=== PATIENT | female | born 1985 | race Caucasian/White ===

== ENCOUNTER 2017-09-22 19:29 | Emergency (ER) | payer OTHER ==
[2017-09-22] MEDS: SOD CHLORIDE 0.9% 1,000 ML IV (20:50)
[2017-09-22] MEDS: ASPIRIN 81 MG TAB PO (20:50)
[2017-09-22] MEDS: METOCLOPRAMIDE 10 MG INJ IV (20:50)
[2017-09-22] MEDS: morphine 2 MG INJ IV (20:50)
[2017-09-22 20:55] LABS: ADD MAN DIFF? NO
[2017-09-22 20:59] LABS: WHITE BLOOD COUNT 9.1 10^3/ul (4.8-10.8)
[2017-09-22 20:59] LABS: BASOPHILS % 0.3 % (0.0-2.0); EOSINOPHILS # 0.1 10^3/ul (0.0-0.5); EOSINOPHILS % 0.9 % (0.0-7.0); HEMATOCRIT 29.1 % (37.0-47.0); HEMOGLOBIN 9.9 g/dl (12.0-16.0); LYMPHOCYTES # 2.4 10^3/ul (0.8-2.9); LYMPHOCYTES % 26.2 % (15.0-51.0); MEAN CORPUSCULAR HEMOGLOBIN 32.2 pg (29.0-33.0); MEAN CORPUSCULAR VOLUME 94.8 fl (82.0-101.0); MEAN PLATELET VOLUME 12.9 fl (7.4-10.4); MONOCYTE # 0.6 10^3/ul (0.3-0.9); MONOCYTES % 6.9 % (0.0-11.0); NEUTROPHIL # 5.9 10^3/ul (1.6-7.5); NEUTROPHILS % 65.3 % (39.0-77.0); PLATELET COUNT 140 10^3/UL (140-415); RED BLOOD COUNT 3.07 10^6/ul (4.20-5.40); RED CELL DISTRIBUTION WIDTH 13.4 % (11.5-14.5)
[2017-09-22 21:21] LABS: ANION GAP 12 (8-16); BLOOD UREA NITROGEN 11 mg/dl (7-20); CALCIUM 8.5 mg/dl (8.4-10.2); CARBON DIOXIDE 24 mmol/L (21-31); CHLORIDE 107 mmol/L (97-110); CREATININE 0.46 mg/dl (0.44-1.00); GLUCOSE 84 mg/dl (70-220); POTASSIUM 4.1 mmol/L (3.5-5.1); SODIUM 139 mmol/L (135-144)
== END 2017-09-22 22:05 | disposition home or self-care (01) ==
LOC: FTE 19:29
DX: O99.89 Other specified diseases and conditions complicating pregnancy, childbirth and the puerperium (principal); R51 Headache; Z3A.23 23 weeks gestation of pregnancy; Z79.82 Long term (current) use of aspirin
CPT/HCPCS: 36415; 80048; 81025; 85025; 96374; 96375; 99284-25

== ENCOUNTER 2017-11-03 09:50 | Inpatient (IN) | payer OTHER ==
[2017-11-03] MEDS ORDERED: ACETAMINOPHEN 325 MG TAB PO (10:30)
[2017-11-03 10:44] LABS: ADD MAN DIFF? NO
[2017-11-03 10:48] LABS: ADD UMIC YES; UR ASCORBIC ACID NEGATIVE (NEGATIVE); UR BILIRUBIN (Dip) NEGATIVE (NEGATIVE); UR BLOOD (Dip) NEGATIVE (NEGATIVE); UR CLARITY CLEAR (CLEAR); UR COLOR STRAW (YELLOW); UR GLUCOSE (Dip) NEGATIVE (NEGATIVE); UR KETONES (Dip) NEGATIVE (NEGATIVE); UR LEUKOCYTE ESTERASE (Dip) TRACE Leu/ul (NEGATIVE); UR NITRITE (Dip) NEGATIVE (NEGATIVE); UR RBC 0 /HPF (0-5); UR SPECIFIC GRAVITY (Dip) 1.006 (1.003-1.030); UR TOTAL PROTEIN (Dip) NEGATIVE (NEGATIVE); UR UROBILINOGEN (Dip) NEGATIVE (NEGATIVE); UR WBC 2 /HPF (0-5)
[2017-11-03 10:49] LABS: ABNORMAL IP MESSAGE 1; BASOPHILS % 0.4 % (0.0-2.0); EOSINOPHILS % 0.4 % (0.0-7.0); HEMATOCRIT 31.9 % (37.0-47.0); HEMOGLOBIN 10.7 g/dl (12.0-16.0); LYMPHOCYTES # 1.7 10^3/ul (0.8-2.9); LYMPHOCYTES % 18.1 % (15.0-51.0); MEAN CORPUSCULAR HEMOGLOBIN 32.6 pg (29.0-33.0); MEAN CORPUSCULAR HGB CONC 33.5 g/dl (32.0-37.0); MEAN CORPUSCULAR VOLUME 97.3 fl (82.0-101.0); MEAN PLATELET VOLUME 13.9 fl (7.4-10.4); MONOCYTE # 0.5 10^3/ul (0.3-0.9); MONOCYTES % 4.8 % (0.0-11.0); NEUTROPHIL # 7.2 10^3/ul (1.6-7.5); NEUTROPHILS % 75.9 % (39.0-77.0); PLATELET COUNT 123 10^3/UL (140-415); RED BLOOD COUNT 3.28 10^6/ul (4.20-5.40); RED CELL DISTRIBUTION WIDTH 13.6 % (11.5-14.5)
[2017-11-03 10:49] LABS: WHITE BLOOD COUNT 9.4 10^3/ul (4.8-10.8)
[2017-11-03 11:05] LABS: INR 0.86; PROTIME 11.8 Sec (11.9-14.9); PT RATIO 0.9
[2017-11-03 11:06] LABS: PARTIAL THROMBOPLASTIN TIME 26.7 Sec (25.0-35.0)
[2017-11-03] MEDS: LACTATED RINGER'S 1,000 ML IV ×2 (11:15→16:51)
[2017-11-03] MEDS: BETAMET NA PHOS/AC(6 MG/ML) 5ML INJ IM (11:20)
[2017-11-03 11:32] LABS: ALBUMIN/GLOBULIN RATIO 1.06; ANION GAP 11 (8-16); BILIRUBIN,TOTAL 0.1 mg/dl (0.2-1.3)
[2017-11-03 11:36] LABS: ALANINE AMINOTRANSFERASE 17 IU/L (13-69); ALBUMIN 3.4 g/dl (3.3-4.9); ALKALINE PHOSPHATASE 145 IU/L (42-121); ASPARTATE AMINO TRANSFERASE 20 IU/L (15-46); BILIRUBIN,INDIRECT 0.1 mg/dl (0-1.1); BLOOD UREA NITROGEN 12 mg/dl (7-20); CALCIUM 8.5 mg/dl (8.4-10.2); CARBON DIOXIDE 24 mmol/L (21-31); CHLORIDE 107 mmol/L (97-110); CREATININE 0.54 mg/dl (0.44-1.00); GLUCOSE 108 mg/dl (70-220); POTASSIUM 4.1 mmol/L (3.5-5.1); SODIUM 138 mmol/L (135-144); TOTAL PROTEIN 6.6 g/dl (6.1-8.1)
[2017-11-03] MEDS ORDERED: ONDANSETRON 4 MG TAB PO (21:30)
[2017-11-03] MEDS: ASPIRIN (EC) 81 MG TAB PO (23:23)
[2017-11-04] MEDS: LACTATED RINGER'S 1,000 ML IV ×4 (00:02→23:12)
[2017-11-04 11:13] LABS: COLLECTION PERIOD 24 hrs
[2017-11-04] MEDS: BETAMET NA PHOS/AC(6 MG/ML) 5ML INJ IM (11:35)
[2017-11-04 12:58] LABS: COLLECTION PERIOD 24 hrs; CREATININE CLEARANCE 179.4 mls/min (84.0-162.0); CREATININE,URINE RANDOM 49.81 mg/dl (20-320); SCRET 0.54 mg/dl (0.44-1.00); VOLUME 2800 ml/24hrs; VOLUME 2800 mls
[2017-11-04] MEDS: PRENATAL VITAMIN PO (21:25)
[2017-11-04] MEDS: ASPIRIN (EC) 81 MG TAB PO (23:13)
[2017-11-05] MEDS: LACTATED RINGER'S 1,000 ML IV ×3 (06:34→20:31)
[2017-11-05 15:02] LABS: ADD MAN DIFF? NO
[2017-11-05 15:06] LABS: ABNORMAL IP MESSAGE 1; BASOPHILS % 0.1 % (0.0-2.0); EOSINOPHILS % 0.1 % (0.0-7.0); HEMATOCRIT 29.1 % (37.0-47.0); HEMOGLOBIN 9.4 g/dl (12.0-16.0); LYMPHOCYTES # 2.4 10^3/ul (0.8-2.9); LYMPHOCYTES % 17.7 % (15.0-51.0); MEAN CORPUSCULAR HEMOGLOBIN 31.8 pg (29.0-33.0); MEAN CORPUSCULAR HGB CONC 32.3 g/dl (32.0-37.0); MEAN CORPUSCULAR VOLUME 98.3 fl (82.0-101.0); MEAN PLATELET VOLUME 13.6 fl (7.4-10.4); MONOCYTES % 7.4 % (0.0-11.0); NEUTROPHIL # 10.1 10^3/ul (1.6-7.5); NEUTROPHILS % 73.6 % (39.0-77.0); PLATELET COUNT 118 10^3/UL (140-415); RED BLOOD COUNT 2.96 10^6/ul (4.20-5.40); RED CELL DISTRIBUTION WIDTH 14.2 % (11.5-14.5)
[2017-11-05 15:06] LABS: WHITE BLOOD COUNT 13.7 10^3/ul (4.8-10.8)
[2017-11-05 15:08] LABS: POSITIVE DIFF @See below
[2017-11-05] MEDS: ASPIRIN (EC) 81 MG TAB PO (23:47)
[2017-11-05] MEDS: PRENATAL VITAMIN PO (23:49)
[2017-11-06 00:37] LABS: B2 GLYCOPROTEIN I AB (IGA) <9 SAU (< OR = 20); B2 GLYCOPROTEIN I AB (IGG) <9 SGU (< OR = 20); B2 GLYCOPROTEIN I AB (IGM) <9 SMU (< OR = 20)
[2017-11-06] MEDS: LACTATED RINGER'S 1,000 ML IV ×2 (04:48→17:21)
[2017-11-06 05:40] LABS: ABNORMAL IP MESSAGE 1; ADD MAN DIFF? NO; BASOPHILS % 0.3 % (0.0-2.0); EOSINOPHILS # 0.1 10^3/ul (0.0-0.5); EOSINOPHILS % 0.6 % (0.0-7.0); HEMOGLOBIN 9.1 g/dl (12.0-16.0); LYMPHOCYTES # 2.9 10^3/ul (0.8-2.9); MEAN CORPUSCULAR HEMOGLOBIN 32.3 pg (29.0-33.0); MEAN CORPUSCULAR HGB CONC 32.5 g/dl (32.0-37.0); MEAN CORPUSCULAR VOLUME 99.3 fl (82.0-101.0); MEAN PLATELET VOLUME 14.3 fl (7.4-10.4); MONOCYTE # 0.8 10^3/ul (0.3-0.9); MONOCYTES % 7.8 % (0.0-11.0); NEUTROPHIL # 6.7 10^3/ul (1.6-7.5); NEUTROPHILS % 63.4 % (39.0-77.0); NUCLEATED RED BLOOD CELLS% 0.2 /100WBC (0.0-0.0); PLATELET COUNT 105 10^3/UL (140-415); RED BLOOD COUNT 2.82 10^6/ul (4.20-5.40)
[2017-11-06 05:40] LABS: WHITE BLOOD COUNT 10.6 10^3/ul (4.8-10.8)
[2017-11-06 05:49] LABS: POSITIVE DIFF @See below
[2017-11-06 06:11] LABS: ALANINE AMINOTRANSFERASE 28 IU/L (13-69); ALBUMIN 2.8 g/dl (3.3-4.9); ALBUMIN/GLOBULIN RATIO 0.93; ALKALINE PHOSPHATASE 111 IU/L (42-121); ANION GAP 11 (8-16); ASPARTATE AMINO TRANSFERASE 24 IU/L (15-46); BILIRUBIN,INDIRECT 0.2 mg/dl (0-1.1); BILIRUBIN,TOTAL 0.2 mg/dl (0.2-1.3); BLOOD UREA NITROGEN 9 mg/dl (7-20); CALCIUM 8.2 mg/dl (8.4-10.2); CARBON DIOXIDE 24 mmol/L (21-31); CHLORIDE 109 mmol/L (97-110); CREATININE 0.49 mg/dl (0.44-1.00); GLUCOSE 107 mg/dl (70-220); POTASSIUM 3.7 mmol/L (3.5-5.1); SODIUM 140 mmol/L (135-144); TOTAL PROTEIN 5.8 g/dl (6.1-8.1); URIC ACID 3.4 mg/dl (3.1-7.9)
[2017-11-06 06:12] LABS: INR 0.85; PROTIME 11.7 Sec (11.9-14.9); PT RATIO 0.9
[2017-11-06 06:13] LABS: PARTIAL THROMBOPLASTIN TIME 25.4 Sec (25.0-35.0)
[2017-11-06 06:47] LABS: ADD UMIC YES; UR ASCORBIC ACID NEGATIVE (NEGATIVE); UR BACTERIA FEW /HPF (NONE SEEN); UR BILIRUBIN (Dip) NEGATIVE (NEGATIVE); UR BLOOD (Dip) NEGATIVE (NEGATIVE); UR CLARITY CLEAR (CLEAR); UR COLOR STRAW (YELLOW); UR GLUCOSE (Dip) NEGATIVE (NEGATIVE); UR KETONES (Dip) NEGATIVE (NEGATIVE); UR LEUKOCYTE ESTERASE (Dip) 2+ Leu/ul (NEGATIVE); UR NITRITE (Dip) NEGATIVE (NEGATIVE); UR RBC 1 /HPF (0-5); UR SPECIFIC GRAVITY (Dip) 1.009 (1.003-1.030); UR TOTAL PROTEIN (Dip) NEGATIVE (NEGATIVE); UR UROBILINOGEN (Dip) NEGATIVE (NEGATIVE); UR WBC 3 /HPF (0-5)
[2017-11-06] MEDS: PRENATAL VITAMIN PO (21:48)
[2017-11-06] MEDS: ASPIRIN (EC) 81 MG TAB PO (21:49)
[2017-11-07] MEDS: LACTATED RINGER'S 1,000 ML IV ×3 (02:34→21:55)
[2017-11-07] MEDS: DOCUSATE SODIUM 100 MG CAP PO ×2 (09:36→21:00)
[2017-11-07] MEDS ORDERED: SENNA TAB PO (16:00)
[2017-11-07] MEDS ORDERED: PRENATAL VITAMIN PO (16:00)
[2017-11-07] MEDS ORDERED: MAGNESIUM HYDROXIDE 30ML CUP PO (16:00)
[2017-11-07] MEDS: PRENATAL VITAMIN PO (21:29)
[2017-11-07] MEDS: ASPIRIN (EC) 81 MG TAB PO (22:35)
[2017-11-08 06:38] LABS: ADD MAN DIFF? NO
[2017-11-08 06:48] LABS: ABNORMAL IP MESSAGE 1; BASOPHILS % 0.2 % (0.0-2.0); EOSINOPHILS # 0.1 10^3/ul (0.0-0.5); EOSINOPHILS % 0.7 % (0.0-7.0); HEMATOCRIT 31.8 % (37.0-47.0); HEMOGLOBIN 10.7 g/dl (12.0-16.0); LYMPHOCYTES # 2.8 10^3/ul (0.8-2.9); LYMPHOCYTES % 27.3 % (15.0-51.0); MEAN CORPUSCULAR HEMOGLOBIN 32.6 pg (29.0-33.0); MEAN CORPUSCULAR HGB CONC 33.6 g/dl (32.0-37.0); MEAN PLATELET VOLUME 13.4 fl (7.4-10.4); MONOCYTE # 0.8 10^3/ul (0.3-0.9); NEUTROPHIL # 6.4 10^3/ul (1.6-7.5); PLATELET COUNT 118 10^3/UL (140-415); RED BLOOD COUNT 3.28 10^6/ul (4.20-5.40); RED CELL DISTRIBUTION WIDTH 13.6 % (11.5-14.5)
[2017-11-08 06:48] LABS: WHITE BLOOD COUNT 10.1 10^3/ul (4.8-10.8)
[2017-11-08 06:51] LABS: POSITIVE DIFF @See below
[2017-11-08] MEDS: DOCUSATE SODIUM 100 MG CAP PO ×2 (09:00→21:00)
[2017-11-08] MEDS: FERROUS GLUCONATE (EC) 325 MG TAB PO ×2 (10:36→10:38)
[2017-11-08] MEDS: LACTATED RINGER'S 1,000 ML IV ×4 (14:00→22:04)
[2017-11-08] MEDS: PRENATAL VITAMIN PO (21:54)
[2017-11-08] MEDS: ASPIRIN (EC) 81 MG TAB PO (22:20)
[2017-11-09 00:16] LABS: CARDIOLIPIN AB - IGA <11 APL; CARDIOLIPIN AB - IGG <14 GPL; CARDIOLIPIN AB - IGM <12 MPL
[2017-11-09] MEDS: LACTATED RINGER'S 1,000 ML IV ×3 (05:50→23:46)
[2017-11-09] MEDS: DOCUSATE SODIUM 100 MG CAP PO ×2 (16:18→21:53)
[2017-11-09] MEDS: FERROUS GLUCONATE (EC) 325 MG TAB PO ×2 (19:59→23:10)
[2017-11-09] MEDS: PRENATAL VITAMIN PO (21:52)
[2017-11-09] MEDS: ASPIRIN (EC) 81 MG TAB PO (23:11)
[2017-11-10] MEDS: DIPHENHYDRAMINE 50 MG CAP PO (01:04)
[2017-11-10] MEDS: LACTATED RINGER'S 1,000 ML IV ×3 (07:17→22:43)
[2017-11-10] MEDS: DOCUSATE SODIUM 100 MG CAP PO ×2 (08:55→21:00)
[2017-11-10] MEDS: FERROUS GLUCONATE (EC) 325 MG TAB PO (22:22)
[2017-11-10] MEDS: PRENATAL VITAMIN PO (22:22)
[2017-11-10] MEDS: ASPIRIN (EC) 81 MG TAB PO (22:22)
[2017-11-11] MEDS: LACTATED RINGER'S 1,000 ML IV ×2 (06:18→20:46)
[2017-11-11 08:03] LABS: ADD MAN DIFF? NO
[2017-11-11 08:10] LABS: WHITE BLOOD COUNT 9.4 10^3/ul (4.8-10.8)
[2017-11-11 08:10] LABS: ABNORMAL IP MESSAGE 1; BASOPHILS % 0.3 % (0.0-2.0); EOSINOPHILS # 0.1 10^3/ul (0.0-0.5); EOSINOPHILS % 1.3 % (0.0-7.0); HEMATOCRIT 30.3 % (37.0-47.0); HEMOGLOBIN 9.9 g/dl (12.0-16.0); LYMPHOCYTES # 2.8 10^3/ul (0.8-2.9); LYMPHOCYTES % 29.6 % (15.0-51.0); MEAN CORPUSCULAR HEMOGLOBIN 32.4 pg (29.0-33.0); MEAN CORPUSCULAR HGB CONC 32.7 g/dl (32.0-37.0); MEAN PLATELET VOLUME 14.1 fl (7.4-10.4); MONOCYTE # 0.8 10^3/ul (0.3-0.9); MONOCYTES % 8.1 % (0.0-11.0); NEUTROPHIL # 5.6 10^3/ul (1.6-7.5); NEUTROPHILS % 60.2 % (39.0-77.0); PLATELET COUNT 120 10^3/UL (140-415); RED BLOOD COUNT 3.06 10^6/ul (4.20-5.40); RED CELL DISTRIBUTION WIDTH 13.9 % (11.5-14.5)
[2017-11-11 08:15] LABS: POSITIVE DIFF @See below
[2017-11-11] MEDS: DOCUSATE SODIUM 100 MG CAP PO ×2 (08:56→22:04)
[2017-11-11] MEDS ORDERED: GLUCOSE GEL 15 GRAM TUBE BUCCAL (12:30)
[2017-11-11] MEDS ORDERED: GLUCOSE GEL 15 GRAM TUBE PO ×2 (12:30)
[2017-11-11] MEDS ORDERED: GLUCAGON 1 MG INJ IM (12:30)
[2017-11-11] MEDS ORDERED: DEXTROSE 50% 50 ML SYRINGE IV ×2 (12:30)
[2017-11-11] MEDS ORDERED: INSULIN ASPART [NOVOLOG] 3 ML PEN SC (17:35)
[2017-11-11] MEDS ORDERED: NPH, HUMAN INSULIN ISOPHANE 3ML VIAL SC (20:00)
[2017-11-11] MEDS: PRENATAL VITAMIN PO (22:04)
[2017-11-11] MEDS: ASPIRIN (EC) 81 MG TAB PO (22:04)
[2017-11-11] MEDS: FERROUS GLUCONATE (EC) 325 MG TAB PO (22:04)
[2017-11-12] MEDS: LACTATED RINGER'S 1,000 ML IV ×4 (02:03→22:03)
[2017-11-12] MEDS ORDERED: INSULIN ASPART [NOVOLOG] 3 ML PEN SC (07:35)
[2017-11-12] MEDS ORDERED: NPH, HUMAN INSULIN ISOPHANE 3ML VIAL SC (08:00)
[2017-11-12] MEDS: DOCUSATE SODIUM 100 MG CAP PO ×2 (09:10→22:03)
[2017-11-12] MEDS: ASPIRIN (EC) 81 MG TAB PO (22:03)
[2017-11-12] MEDS: FERROUS GLUCONATE (EC) 325 MG TAB PO (22:03)
[2017-11-12] MEDS: PRENATAL VITAMIN PO (22:03)
[2017-11-13] MEDS: DIPHENHYDRAMINE 50 MG CAP PO (02:35)
[2017-11-13] MEDS: LACTATED RINGER'S 1,000 ML IV ×3 (05:17→20:57)
[2017-11-13] MEDS: DOCUSATE SODIUM 100 MG CAP PO ×3 (12:54→21:33)
[2017-11-13] MEDS: FERROUS GLUCONATE (EC) 325 MG TAB PO (21:33)
[2017-11-13] MEDS: PRENATAL VITAMIN PO (21:33)
[2017-11-13] MEDS: ASPIRIN (EC) 81 MG TAB PO (21:33)
[2017-11-14] MEDS: LACTATED RINGER'S 1,000 ML IV ×3 (05:02→21:56)
[2017-11-14] MEDS: PRENATAL VITAMIN PO (21:25)
[2017-11-14] MEDS: FERROUS GLUCONATE (EC) 325 MG TAB PO (21:25)
[2017-11-14] MEDS: DOCUSATE SODIUM 100 MG CAP PO (21:25)
[2017-11-14] MEDS: ASPIRIN (EC) 81 MG TAB PO (21:25)
[2017-11-15] MEDS: LACTATED RINGER'S 1,000 ML IV ×3 (05:58→19:06)
[2017-11-15] MEDS: DOCUSATE SODIUM 100 MG CAP PO (09:00)
[2017-11-15] MEDS: BETAMET NA PHOS/AC(6 MG/ML) 5ML INJ IM (12:21)
[2017-11-15] MEDS ORDERED: OXYTOCIN 30 UNITS/LR 500 ML IV ×2 (18:00→22:35)
[2017-11-15] MEDS ORDERED: METHYLERGONOVINE 0.2 MG INJ IM (18:00)
[2017-11-15] MEDS ORDERED: CARBOPROST 250 MCG INJ IM (18:00)
[2017-11-15] MEDS ORDERED: MISOPROSTOL 200 MCG TAB PR (18:00)
[2017-11-15 18:05] LABS: ADD MAN DIFF? NO
[2017-11-15 18:07] LABS: ABNORMAL IP MESSAGE 1; BASOPHILS % 0.2 % (0.0-2.0); HEMATOCRIT 33.6 % (37.0-47.0); HEMOGLOBIN 11.3 g/dl (12.0-16.0); LYMPHOCYTES # 0.9 10^3/ul (0.8-2.9); MEAN CORPUSCULAR HGB CONC 33.6 g/dl (32.0-37.0); MEAN CORPUSCULAR VOLUME 98.2 fl (82.0-101.0); MEAN PLATELET VOLUME 13.8 fl (7.4-10.4); MONOCYTE # 0.1 10^3/ul (0.3-0.9); MONOCYTES % 0.9 % (0.0-11.0); NEUTROPHILS % 91.4 % (39.0-77.0); PLATELET COUNT 133 10^3/UL (140-415); RED BLOOD COUNT 3.42 10^6/ul (4.20-5.40)
[2017-11-15 18:07] LABS: WHITE BLOOD COUNT 13.1 10^3/ul (4.8-10.8)
[2017-11-15 18:26] LABS: INR 0.87; POSITIVE DIFF @See below; PROTIME 11.9 Sec (11.9-14.9); PT RATIO 0.9
[2017-11-15 18:27] LABS: PARTIAL THROMBOPLASTIN TIME 25.4 Sec (25.0-35.0)
[2017-11-15] MEDS ORDERED: METOCLOPRAMIDE 10 MG INJ (18:39)
[2017-11-15] MEDS ORDERED: ONDANSETRON 4 MG INJ (18:39)
[2017-11-15] MEDS ORDERED: FAMOTIDINE 20 MG INJ (18:40)
[2017-11-15] MEDS ORDERED: CITRIC ACID/SODIUM CITRATE 15 ML CUP (18:40)
[2017-11-15] MEDS: METOCLOPRAMIDE 10 MG INJ IV (18:52)
[2017-11-15] MEDS: CITRIC ACID/SODIUM CITRATE 15 ML CUP PO (18:52)
[2017-11-15] MEDS: ONDANSETRON 4 MG INJ IV (18:52)
[2017-11-15] MEDS: FAMOTIDINE 20 MG INJ IV (18:52)
[2017-11-15 18:56] LABS: HEPATITIS B SURFACE ANTIGEN NEGATIVE (NEGATIVE)
[2017-11-15] MEDS ORDERED: morphine SULFATE/PF (10 MG/10 ML) INJ (20:11)
[2017-11-15] MEDS ORDERED: EPINEPHrine 1 MG INJ (20:11)
[2017-11-15] MEDS ORDERED: TRIMETHOBENZAMIDE 100 MG/ML VIAL IM (20:30)
[2017-11-15] MEDS ORDERED: ZOLPIDEM 5 MG TAB PO (20:30)
[2017-11-15] MEDS ORDERED: FENTAnyl 50 MCG/ML VIAL IV (20:30)
[2017-11-15] MEDS ORDERED: NALOXONE (0.4 MG/ML) INJ IV (20:30)
[2017-11-15] MEDS ORDERED: HYDROmorphONE 0.5 MG/0.5 ML SYG IV ×2 (20:30)
[2017-11-15] MEDS ORDERED: HYDROmorphONE 1 MG/5 ML IV SYRINGE IV ×3 (20:30)
[2017-11-15] MEDS ORDERED: ONDANSETRON 4 MG INJ IV ×2 (20:30)
[2017-11-15] MEDS ORDERED: DIPHENHYDRAMINE 50 MG INJ IV (20:30)
[2017-11-15] MEDS: DIPHENHYDRAMINE 50 MG INJ IV (20:37)
[2017-11-15] MEDS: KETOROLAC 30 MG INJ IV (20:37)
[2017-11-15] MEDS: CEFAZOLIN 2 GM/50 ML (PMX) 50 ML IV (20:48)
[2017-11-15] MEDS: MEPERIDINE 25 MG INJ IV (21:17)
[2017-11-15] MEDS: OXYTOCIN 30 UNITS/LR 500 ML IV (21:21)
[2017-11-15] MEDS ORDERED: OXYTOCIN 10 UNIT INJ (22:35)
[2017-11-15] MEDS: FENTAnyl 50 MCG/ML VIAL IV (22:42)
[2017-11-16] MEDS ORDERED: MISOPROSTOL 200 MCG TAB PR
[2017-11-16] MEDS ORDERED: METHYLERGONOVINE 0.2 MG INJ IM
[2017-11-16] MEDS ORDERED: OXYTOCIN 30 UNITS/LR 500 ML IV
[2017-11-16] MEDS ORDERED: CARBOPROST 250 MCG INJ IM
[2017-11-16] MEDS ORDERED: NA PHOSPHATE/BIPHOS 133 ML ENEMA PR
[2017-11-16] MEDS: CLINDAMYCIN 300 MG CAP PO ×5 (00:30→23:35)
[2017-11-16] MEDS: CEFAZOLIN 2 GM/50 ML (PMX) 50 ML IV ×3 (00:31→16:14)
[2017-11-16] MEDS: OXYTOCIN 30 UNITS/LR 500 ML IV ×4 (01:56→21:15)
[2017-11-16] MEDS: LACTATED RINGER'S 1,000 ML IV ×2 (05:59→14:52)
[2017-11-16] MEDS: KETOROLAC 30 MG INJ IV ×2 (07:59→17:18)
[2017-11-16 11:00] LABS: ADD MAN DIFF? NO
[2017-11-16 11:01] LABS: ABNORMAL IP MESSAGE 1; BASOPHILS % 0.2 % (0.0-2.0); HEMATOCRIT 29.2 % (37.0-47.0); HEMOGLOBIN 9.6 g/dl (12.0-16.0); LYMPHOCYTES # 2.3 10^3/ul (0.8-2.9); MEAN CORPUSCULAR HEMOGLOBIN 32.3 pg (29.0-33.0); MEAN CORPUSCULAR HGB CONC 32.9 g/dl (32.0-37.0); MEAN CORPUSCULAR VOLUME 98.3 fl (82.0-101.0); MEAN PLATELET VOLUME 13.7 fl (7.4-10.4); MONOCYTES % 5.4 % (0.0-11.0); NEUTROPHIL # 14.3 10^3/ul (1.6-7.5); NEUTROPHILS % 80.8 % (39.0-77.0); PLATELET COUNT 110 10^3/UL (140-415); RED BLOOD COUNT 2.97 10^6/ul (4.20-5.40); RED CELL DISTRIBUTION WIDTH 14.4 % (11.5-14.5)
[2017-11-16 11:01] LABS: WHITE BLOOD COUNT 17.6 10^3/ul (4.8-10.8)
[2017-11-16 11:03] LABS: POSITIVE DIFF @See below
[2017-11-16] MEDS: BISACODYL 10 MG SUPP PR (11:30)
[2017-11-16] MEDS: SENNA/DOCUSATE NA (8.6MG/50MG) TAB PO ×2 (11:48→21:32)
[2017-11-16 17:49] LABS: RAPID PLASMA REAGIN NONREACTIVE (NR)
[2017-11-16] MEDS: IBUPROFEN 800 MG TAB PO (21:32)
[2017-11-16] MEDS: LANOLIN 7 GM TUBE TOP (23:28)
[2017-11-16] MEDS: OXYCODONE/ACETAMINOPHEN (5/325) TAB PO (23:34)
[2017-11-17] MEDS: CLINDAMYCIN 300 MG CAP PO ×4 (05:56→23:41)
[2017-11-17] MEDS: IBUPROFEN 800 MG TAB PO ×3 (05:56→22:27)
[2017-11-17] MEDS: OXYCODONE/ACETAMINOPHEN (5/325) TAB PO ×2 (07:06→11:36)
[2017-11-17] MEDS: SENNA/DOCUSATE NA (8.6MG/50MG) TAB PO ×2 (08:49→20:46)
[2017-11-17 08:51] LABS: ADD MAN DIFF? NO
[2017-11-17 09:00] LABS: WHITE BLOOD COUNT 15.6 10^3/ul (4.8-10.8)
[2017-11-17 09:00] LABS: ABNORMAL IP MESSAGE 1; BASOPHILS % 0.2 % (0.0-2.0); EOSINOPHILS % 0.3 % (0.0-7.0); HEMATOCRIT 30.4 % (37.0-47.0); HEMOGLOBIN 9.7 g/dl (12.0-16.0); LYMPHOCYTES # 4.1 10^3/ul (0.8-2.9); LYMPHOCYTES % 26.3 % (15.0-51.0); MEAN CORPUSCULAR HEMOGLOBIN 31.9 pg (29.0-33.0); MEAN CORPUSCULAR HGB CONC 31.9 g/dl (32.0-37.0); MEAN PLATELET VOLUME 13.6 fl (7.4-10.4); MONOCYTE # 0.9 10^3/ul (0.3-0.9); MONOCYTES % 5.6 % (0.0-11.0); NEUTROPHIL # 10.4 10^3/ul (1.6-7.5); NEUTROPHILS % 66.6 % (39.0-77.0); PLATELET COUNT 106 10^3/UL (140-415); RED BLOOD COUNT 3.04 10^6/ul (4.20-5.40); RED CELL DISTRIBUTION WIDTH 14.7 % (11.5-14.5)
[2017-11-17 09:07] LABS: POSITIVE DIFF @See below
[2017-11-17] MEDS: BISACODYL 10 MG SUPP PR (16:31)
[2017-11-17] MEDS: HYDROCODONE/APAP (5/325) TAB PO (20:45)
[2017-11-18] MEDS: IBUPROFEN 800 MG TAB PO ×2 (06:24→13:01)
[2017-11-18] MEDS: CLINDAMYCIN 300 MG CAP PO ×3 (06:24→17:31)
[2017-11-18 08:27] LABS: ADD MAN DIFF? NO
[2017-11-18 08:32] LABS: ABNORMAL IP MESSAGE 1; BASOPHILS % 0.3 % (0.0-2.0); EOSINOPHILS # 0.1 10^3/ul (0.0-0.5); HEMATOCRIT 26.3 % (37.0-47.0); HEMOGLOBIN 8.7 g/dl (12.0-16.0); LYMPHOCYTES % 28.8 % (15.0-51.0); MEAN CORPUSCULAR HEMOGLOBIN 33.3 pg (29.0-33.0); MEAN CORPUSCULAR HGB CONC 33.1 g/dl (32.0-37.0); MEAN CORPUSCULAR VOLUME 100.8 fl (82.0-101.0); MEAN PLATELET VOLUME 12.5 fl (7.4-10.4); MONOCYTE # 0.5 10^3/ul (0.3-0.9); NEUTROPHIL # 6.7 10^3/ul (1.6-7.5); NEUTROPHILS % 63.7 % (39.0-77.0); PLATELET COUNT 87 10^3/UL (140-415); RED BLOOD COUNT 2.61 10^6/ul (4.20-5.40); RED CELL DISTRIBUTION WIDTH 14.6 % (11.5-14.5)
[2017-11-18 08:32] LABS: WHITE BLOOD COUNT 10.5 10^3/ul (4.8-10.8)
[2017-11-18 08:34] LABS: POSITIVE DIFF @See below
[2017-11-18] MEDS: SENNA/DOCUSATE NA (8.6MG/50MG) TAB PO (09:00)
[2017-11-18] MEDS: MEASLES,MUMPS,RUBELLA VACCINE INJ SC* (10:06)
[2017-11-18] MEDS: DIPHTH/TET/ACEL PERTUSS (ADULT) 0.5 ML VIAL IM* (10:07)
== END 2017-11-18 19:06 | disposition home or self-care (01) | DRG 765 ==
LOC: L-D 09:50 → PP1 11-09 20:33 → L-D 11-15 17:15 → PP1 11-15 23:30
PROC: 10D00Z1 Extraction of Products of Conception, Low, Open Approach (ICD-10-PCS; principal; 2017-11-15 19:00)
DX: O60.14X0 Preterm labor third trimester with preterm delivery third trimester, not applicable or unspecified (principal); O41.03X0 Oligohydramnios, third trimester, not applicable or unspecified; O36.5930 Maternal care for other known or suspected poor fetal growth, third trimester, not applicable or unspecified; O41.93X0 Disorder of amniotic fluid and membranes, unspecified, third trimester, not applicable or unspecified; O76 Abnormality in fetal heart rate and rhythm complicating labor and delivery; Z3A.29 29 weeks gestation of pregnancy; Z37.0 Single live birth
CPT/HCPCS: 76816; 76818; 76820; 80053; 81001; 82575; 84156; 84560; 85025; 85384; 85610; 85613; 85730; 86146; 86147; 86592; 86850; 86900; 86901; 87086; 87340; 88307; 99464